=== PATIENT | female | born 2000 | race African-American/Black ===

== ENCOUNTER 2022-02-03 13:47 | Emergency (ER) | payer BC ==
[2022-02-03] MEDS ORDERED: Metoclopramide HCl 10 MG/2 ML VIAL ONE (14:17)
[2022-02-03] MEDS ORDERED: Ketorolac Tromethamine 30 MG/ML VIAL ONE (14:17)
[2022-02-03] MEDS ORDERED: diphenhydrAMINE 50 MG/ML VIAL ONE (14:17)
[2022-02-03] MEDS ORDERED: Acetaminophen 500 MG TAB ONE (15:57)
== END 2022-02-03 16:28 | disposition home or self-care (01) ==
LOC: ERS 13:47
DX: G43.909 Migraine, unspecified, not intractable, without status migrainosus (principal); Z79.899 Other long term (current) drug therapy
CPT/HCPCS: 96365; 96366; 96375; J1200; J1885; J2765